=== PATIENT | male | born 1995 | race African-American/Black ===

== ENCOUNTER 2022-06-22 13:20 | Emergency (ER) | payer SELFPAY ==
[~2022-06-22] VITALS: Ht 177.8 cm; Wt 80.0 kg
[2022-06-22 13:37] VITALS: BP 119/83
[2022-06-22 15:09] LABS: Urine Bacteria NONE SEEN /hpf (None Seen); Urine Blood TRACE /uL (Negative); Urine Specific Gravity 1.021 (1.001-1.035); Urine WBC 1097 /hpf (0 - 3)
[2022-06-22] MEDS ORDERED: IOTHALAMATE MEGLUMINE INJ 250ML BOT UR ONE (15:49)
[2022-06-22] MEDS ORDERED: NITR-87 PO (16:52)
== END 2022-06-22 16:53 | disposition home or self-care (01) ==
LOC: ER 13:20
DX: N39.0 Urinary tract infection, site not specified (principal); N36.9 Urethral disorder, unspecified
CPT/HCPCS: 74420; 81001; 99284; Q9958